=== PATIENT | female | born 2000 | race Two or more races ===

== ENCOUNTER 2021-04-16 13:04 | Emergency (ER) | payer OTHER ==
[~2021-04-16] VITALS: Ht 170.2 cm; Wt 99.8 kg
[2021-04-16] MEDS ORDERED: LEVSIN/SL0.125 MG SL (17:36)
[2021-04-16] MEDS ORDERED: PEPCID AC20 MG PO (17:36)
== END 2021-04-16 17:52 | disposition home or self-care (01) ==
LOC: ER 13:04
DX: K29.70 Gastritis, unspecified, without bleeding (principal)

== ENCOUNTER 2021-08-14 17:15 | Outpatient (CLI) | payer OTHER ==
[~2021-08-14 17:15] MED LIST: LEVSIN/SL0.125 MG SL; PEPCID AC20 MG PO
== END 2021-08-14 17:20 | disposition home or self-care (01) ==
LOC: PPH VACUNA 17:15
PROVIDERS: ATTEND Emergency Medicine Pediatric Emergency Medicine
DX: Z23 Encounter for immunization (principal)